=== PATIENT | female | born 1975 | race Hispanic/Latino ===

== ENCOUNTER 2018-02-12 11:29 | Day surgery (SDC) | payer OTHER ==
[2015-11-29 11:03] VITALS: BMI 27.4
[2018-02-12 12:13] LABS: HEMOGLOBIN 14.6 g/dL (12.0-16.0); MEAN CELL VOLUME 91.6 fl (81.0-99.0); MEAN CORPUSCULAR HEMOGLOBIN 30.8 pg (27.0-31.0); MEAN CORPUSCULAR HGB CONC 33.7 g/dL (33.0-37.0); RBC 4.75 Mil/uL (3.80-5.20); RED CELL DISTRIBUTION WIDTH 12.6 % (11.5-14.5); WHITE BLOOD COUNT 9.2 K/uL (4.8-10.8)
[2018-02-12] MEDS ORDERED: Lactated Ringer's 1,000 ML IV ONE ×6 (12:23→18:35)
[2018-02-12] MEDS ORDERED: Propofol 10 mg/ml Inj (20 ML) ONE (14:40)
[2018-02-12] MEDS ORDERED: Rocuronium 10 mg/ml (5 ml) ONE ×2 (14:40→16:48)
[2018-02-12] MEDS ORDERED: Neostigmine 1:1000 (1 mg/ml) Inj ONE (14:45)
[2018-02-12] MEDS ORDERED: Lidocaine 4% (Laryng-O-Jet) Kit MM ONE (14:45)
[2018-02-12] MEDS ORDERED: Dexamethasone 4 mg/1 ml ONE (14:45)
[2018-02-12] MEDS ORDERED: Succinylcholine 200 mg/10 ml Inj IV ONE (14:46)
[2018-02-12] MEDS ORDERED: Midazolam 2 MG/2 ML VIAL ONE (15:36)
[2018-02-12] MEDS ORDERED: Bupivacaine 0.25% Inj(30mL) IJ ONE (16:15)
[2018-02-12] MEDS ORDERED: Desflurane Inhalation Anesthetic Liq (240 ml) ONE (16:17)
[2018-02-12] MEDS ORDERED: HYDROmorphone 0.5 mg/0.5 ml ISec IVP PRN (17:41)
[2018-02-12] MEDS ORDERED: Oxycodone/Acetaminophen 5/325 mg Tab PO PRN (17:41)
[2018-02-12] MEDS ORDERED: Lactated Ringer's 1,000 ML IV SCH ×2 (17:45→18:15)
--- NOTE | 2018-02-12 18:05 | PCM.ANESB5 ---
Transverse Abdominis Block - Transverse Abdominis Plane Date of Procedure: 02/12/18 Anesthesiologist: Travis Pre-Procedure Diagnosis: Endometriosis Post-Procedure Diagnosis: Same Procedure Performed: Transverse Abdominis Plane Nerve Block Left, Transverse Abdominis Plane Nerve Block Right - Procedure Transverse Abdominis Plane Nerve Block: The procedure was explained to the patient that it is for post-operative pain management and would be performed after surgery. Consent was obtained prior to surgery after a thorough discussion with the patient regarding the benefits and possible complications of transverse abdominis plane block. After the surgery had concluded and before the patient emerged from general anesthesia, time-out was held with the circulating nurse to re-confirm the appropriate block. With the patient in supine position, the ultrasound probe was placed transverse to the abdominal wall at the mid-axillary line above the iliac crest of the appropriate side. The skin, subcutaneous tissue, fat, external oblique muscle, internal oblique muscle, and the transverse abdominis muscle were identified. The general area of the block site was then prepped with Betadine three times. At this point, a # 21-gauge Stimuplex 4-inch needle was inserted posterior to and in plane with the ultrasound probe and directed anteriorly. Needle was advanced under direct ultrasound visualization until it reached the plane between the internal oblique and transverse abdominis muscles. After appropriate placement, 2mL of local anesthetic solution was injected. When the transverse abdominis plane was observed expanding in an ellipsoid way, the rest of the solution was slowly injected. A total of ___25___ mL of __0.25___ % ___ bupivicaine was used for this block. The needle was then removed and sterile dressing was applied. Similarly, the same procedure was performed on the other side using the same medications. The patient had stable vital signs throughout and had no untoward complications after emergence from general anesthesia in the recovery room.
[2018-02-12] MEDS: HYDROmorphone 0.5 mg/0.5 ml ISec IVP PRN ×2 (18:20→18:30)
[2018-02-12 20:00] VITALS: BP 125/59; PULSE 73; RESP 18; TEMP 98.7; O2SAT 96
--- NOTE | 2018-02-12 21:20 | OP ---
DATE OF PROCEDURE: 02/12/2018 SURGEON: Alan Britt MD CALL CENTER AGENT: Wojciech Andres MD PREOPERATIVE DIAGNOSES: Pelvic pain, dysmenorrhea, dyspareunia, history of endometriosis. POSTOPERATIVE DIAGNOSES: Pelvic pain, dysmenorrhea, dyspareunia, history of endometriosis, pelvic endometriosis and pelvic adhesions. PROCEDURE PERFORMED: Cystoscopy with bilateral ureteral catheterization,diagnostic hysteroscopy, operative robotic da Heike laparoscopy, lysis of adhesions, excision of endometriosis, bilateral ureterolysis, and bilateral ovariolysis. ANESTHESIOLOGIST: Jose Robles MD ANESTHESIA: General. ESTIMATED BLOOD LOSS: 5 mL. COMPLICATIONS: None. SAMPLES: Peritoneum containing endometriosis from the left-sided pelvic sidewall, left ovarian fossa, lysis of uterosacral area posterior cervical, left ovarian endometrioma, right pelvic sidewall, right ovarian fossa, right uterosacral ligament, and right perirectal area. INDICATION FOR PROCEDURE: The patient is a 42-year-old with a history of multiple surgeries for endometriosis. She had persistent problems and pain, resistant to medical therapy. She was counseled with regards to all risks and benefits of the procedure. She was counseled with regards to the likelihood of the surgery to ameliorate her problems and was taken to the OR. DESCRIPTION OF PROCEDURE: After adequate anesthesia was obtained, the patient was placed in the dorsal lithotomy position and all areas prone to pressure were extensively padded. At this point, also the hips were placed in a position in which they were very comfortable and not hyperextended or hyperflexed. She was prepped and draped. The surgeon was gowned and gloved. At this point, a time-out was taken according to the hospital policy and the procedure was started. A cystoscope was inserted directly into the bladder and under direct visualization, 200 mL of fluid was inserted into the bladder and both ureteral ostia appeared to be in normal anatomical position. The bladder appeared to be normal with no stones or any other lesions. 5 mL of indocyanine green was injected in the left ureter utilizing a 5-Urdu open-ended catheter which was advanced all the way to the distal ureter and then in the contralateral ureter, again was cannulated with a 5 Urdu open-ended catheter and 5 mL of indocyanine green was injected in the contralateral ureter. At this point, the cystoscope was removed. A 16-Urdu Hernandez was inserted into the bladder and a speculum was placed in the vagina. The anterior lip of the cervix was grasped, and the cervix was gently dilated, and a hysteroscope was inserted into the uterine cavity which appeared to be normal without evidence of adenomyosis or any other lesions. At this point, attention was turned to the abdomen where an open laparoscopy was performed by making an incision below the umbilicus and incising the fascia and then entering the peritoneum in a blunt fashion. The cannula was then inserted and the abdomen was insufflated. The proper positioning was observed. The laparoscope was inserted and the pelvis was visualized revealing adhesions with both fallopian tubes and both ovaries adherent to the posterior aspect of the uterus. There were also very significant adhesions between the left ovary and the pelvic sidewall. There was also a small endometrium on the left ovary. Also the right ovary was adherent and had like multiple clips, most likely from the patient's first surgery when she was a teenager where she had a large cyst of endometriosis. Attention then was on the upper abdomen which appeared to be normal. Under direct visualization, three additional ports were inserted in the left upper quadrant, left mid quadrant, and right upper quadrant. The da Heike Xi robot was then docked and the procedure was commenced. Attention was first on the left hand side where after elevating the ovary, an endometrium was identified on the underside of the left ovary. This was drained with the contents removed and endometriotic tissue removed and then attention was on the left pelvic sidewall. There appeared to be adhesions between the colon being dragged up on the posterior aspect of the rectovaginal space. So, I first started on the left hand side where there was an area of a nodule of endometriosis. The ureter was identified. The retroperitoneum was entered and ureteral dissection was performed and a full dissection was performed in a step by step fashion taking down peritoneum with the inflammatory nodule type lesions all the way down from the ovarian fossa all the way down to the left uterosacral ligament. The dissection then continued to across the posterior aspect of the cervix where the rectovaginal space was entered and a full excision was performed removing tissue from the posterior aspect of the cervix in a quite extensive fashion. At this point, attention was on the right hand side. The right ovary was peeled off the posterior aspect of the uterus and chocolate like fluid came out. The right pelvic side was very distorted from the patient's prior surgery. The retroperitoneum was entered. The ureter was identified utilizing fluorescent technology, and a full dissection was performed by entering the retroperitoneum and elevating the ovary together, and I was able to pull many of the clips that I have been placed for the prior surgeon, and finally elevated the ovary in a normal anatomical position. Once this was done, the ureter was progressively dissected off all the way down to the ovarian fossa and a large area of peritoneum was excised all the way down to the uterosacral ligament. At this point, the excision continued in the ovarian fossa on the right hand side across, and a full dissection of the large nodule was done by literally pulling the fibrotic tissue off the right uterine artery which was not injured. At this point, additional dissection was performed in the right posterior cervical area and more sample were sent out. Dr. Andres was called in from general surgery to remove a nodular area on the perirectal and the rectal area which was also sent to pathology. They will dictate separately. At this point, the J plasma energy device was taken and areas of inflammatory peritoneum which were not affected by endometriosis but had just inflammatory changes were destroyed utilizing J plasma energy. At this point, it was checked for hemostasis and appeared to be excellent. The instruments were removed. The pelvis was irrigated. The da Heike robot was taken off the field. The abdomen was desufflated. The incisions were closed with 0 PDS for the fascia and 4-0 Monocryl for the skin. At the end of the procedure, all tapes and instrument counts were correct. The patient tolerated the procedure well and was taken to recovery room in excellent condition. Alan Britt MD [facility] HOSPITALChristina
--- NOTE | 2018-02-17 10:48 | PCM.OP ---
Operative Report - Operative Report Date of Surgery/Procedure: 02/12/18 Time of Surgery/Procedure: 10:00 Surgeon: Dr. Wojciech Andres Legal Investigator: Dr. Alan Britt Anesthesia/Sedation: general/Dr. Robles Pre-Operative Diagnosis: abdominal pain and endometriosis Post-Operative Diagnosis: same with rectal involvement Indication for Surgery: as above Operative Findings: as above Procedure/Operation Description: 1-Excision rectal endometriosis. Brief History : This 42 year old woman was already being explored by Dr. Britt when he noted a lesion on the rectum and he obtained intraoperative gneral surgery consultation. Description of the Procedure: Dr. Britt had alredy intiated the robotic operation (separate dictation). After taking control of the robotic console the lesion was examoined under videoscopy and was on the anterior rectum. With blunt and sharp dissection with the aid of electrocautery the lesion was excised en-bloc and snet to pathology separateley. Hemostasis was deemed adequate. The operation was then turned over to Dr. Britt (separate dictation). Estimated Blood Loss: 6 cc Complications: none Discharge & Condition: stable
== END 2018-02-12 22:57 | disposition home or self-care (01) ==
LOC: H.OPSURG 11:29 → H.PEDS 19:39 → H.OPSURG 22:57
PROVIDERS: ATTEND Obstetrics & Gynecology Reproductive Endocrinology
DX: R10.2 Pelvic and perineal pain (principal); N94.6 Dysmenorrhea, unspecified; N80.1 Endometriosis of ovary; N73.6 Female pelvic peritoneal adhesions (postinfective); N80.5 Endometriosis of intestine; E03.9 Hypothyroidism, unspecified
CPT/HCPCS: 36415; 45499; 58550; 58558; 58662; 64488; 85027; 86850; 86900; 88304; 88305; C1729; J0131; J0330; J0690; J1100; J1170; J2001; J2250; J2704; J2710; J2765; J3010; J7030; J7040; J7120